=== PATIENT | male | born 1960 | race Caucasian/White ===

== ENCOUNTER → 2019-12-23 | Outpatient (CLI) | payer BC ==
--- NOTE | 2019-12-23 22:41 | CT ---
EXAMINATION TYPE: CT sinus wo con DATE OF EXAM: 12/23/2019 COMPARISON: NONE HISTORY: Chronic sinusitis and recurrent acute per order. Facial pain and congestion for patient. CT DLP: 642.5 mGycm. Automated Exposure Control for Dose Reduction was Utilized. TECHNIQUE: CT scan of the sinuses is performed without contrast, axial images are obtained, coronal r eformatted images are also reviewed. FINDINGS: Mild mucosal thickening involving inferior aspect bilateral maxillary sinuses. Large mucous retention cyst or polyp in the inferior left maxillary sinus. Mild mucosal thickening involving the larger caliber left sphenoid sinus. [id number] mucosal thickening involving ethmoid sinuses katherine aterally greater on the left side. No suspicious opacification or air-fluid levels. The surgically tr eated ostiomeatal complex is patent bilaterally on the coronal images. Nasal septum is deviated to ri ght of midline. Visualized portion of mastoid air cells show no abnormal opacification. The globes are intact bilate rally. IMPRESSION: Chronic paranasal sinus disease as detailed above. No acute sinusitis is noted.
== END | disposition home or self-care (01) ==
LOC: RADCTMAIN 16:27
PROVIDERS: ATTEND Nurse Practitioner Family
DX: J32.9 Chronic sinusitis, unspecified (principal)
CPT/HCPCS: 70486

== ENCOUNTER → 2020-01-27 | Outpatient (CLI) | payer BC | END | disposition home or self-care (01) | LOC: LABWHC1 15:57 | PROVIDERS: ATTEND Otolaryngology | DX: J30.89 Other allergic rhinitis (principal) | CPT/HCPCS: 36415 ==

== ENCOUNTER 2023-02-28 08:04 | Day surgery (SDC) | payer BC ==
[2023-02-23 08:47] VITALS: BMI 29.0
[~2023-02-28 08:04] MED LIST: LACTATED RINGERS 1,000 ML IV SCH; LIDOCAINE 1% (10MG/ML) FOR IV START INTRADERMA PRN
[2023-02-28 08:27] VITALS: RESP 16; TEMP 97.1
[2023-02-28] MEDS ORDERED: PROPOFOL 10 MG/ML 20 ML VIAL IV ONE (08:47)
--- NOTE | 2023-02-28 08:50 | P.GSHP ---
History of Present Illness H&P Date: 02/28/23 Chief Complaint: Colon cancer screening 63-year-old male here for colonoscopy. Last colonoscopy 10 years ago. That study was normal. No bowel complaints. No family history of colon cancer. Past Medical History Past Medical History: GERD/Reflux, Hyperlipidemia Additional Past Medical History / Comment(s): eczema. chronic sinusitis due to allergies History of Any Multi-Drug Resistant Organisms: None Reported Past Surgical History: Hernia Repair, Tonsillectomy Additional Past Surgical History / Comment(s): left wrist repair. left knee meniscus repair. sinus surgery Past Anesthesia/Blood Transfusion Reactions: No Reported Reaction Past Psychological History: No Psychological Hx Reported Smoking Status: Never smoker Past Alcohol Use History: Daily Additional Past Alcohol Use History / Comment(s): reports daily beer or whiskey Past Drug Use History: None Reported Additional Drug Use History / Comment(s): chewed tabacco none since 2007, rare cigar past use - Past Family History Mother Family Medical History: Cancer Father History Unknown: Yes Family Medical History: Cancer Additional Family Medical History / Comment(s): lung Medications and Allergies Home Medications Medication Instructions Recorded Confirmed Type Aspirin [Adult Low Dose Aspirin EC] 81 mg PO DAILY 02/23/23 02/23/23 History Cetirizine HCl [Zyrtec] 10 mg PO DAILY 02/23/23 02/23/23 History Fluocinonide 0.05% [Lidex 0.05% 1 applic TOPICAL DAILY PRN 02/23/23 02/28/23 History cream] Fluticasone Nasal Zimmerman [Flonase 1 spray EA NOSTRIL DAILY 02/23/23 02/28/23 History Nasal Zimmerman] Garlic 1,000 mg PO DAILY 02/23/23 02/23/23 History L.acidoph,Paracasei, B.lactis 1 each PO DIRECTED 02/23/23 02/23/23 History [Probiotic] Omeprazole 20 mg PO DIRECTED 02/23/23 02/23/23 History Rosuvastatin Calcium 20 mg PO DAILY 02/23/23 02/23/23 History Allergies Allergy/AdvReac Type Severity Reaction Status Date / Time enviornmental Allergy Unknown Uncoded 02/28/23 08:16 Surgical - Exam Vital Signs Temp Pulse Resp BP Pulse Ox 97.1 F L 82 16 146/94 97 02/28/23 08:26 02/28/23 08:26 02/28/23 08:26 02/28/23 08:26 02/28/23 08:26 Physical exam: General: Well-developed, well-nourished HEENT: Normocephalic, sclerae nonicteric Abdomen: Nontender, nondistended Extremities: No edema Neuro: Alert and oriented Assessment and Plan (1) Colon cancer screening Narrative/Plan: Will proceed with colonoscopy at this time. Current Visit: Yes Status: Acute Code(s): Z12.11 - ENCOUNTER FOR SCREENING FOR MALIGNANT NEOPLASM OF COLON SNOMED Code(s): 931049634
--- NOTE | 2023-02-28 09:05 | P.PCN ---
Date of Procedure: 02/28/23 Procedure(s) Performed: PREOPERATIVE DIAGNOSIS: Colon cancer screening POSTOPERATIVE DIAGNOSIS: Small descending colon polyp PROCEDURE: Colonoscopy with snare polypectomy ANESTHESIA: MAC SURGEON: Jose J Bell M.D. SPECIMENS: Descending colon polyp ENDOSCOPIC PROCEDURE: The patient was placed on the endoscopy table in the left decubitus position. The Olympus colonoscope was inserted into the anus and passed under direct visualization to the base of the cecum. The appendiceal orifice was visualized. From that point the scope was slowly withdrawn inspecting all surfaces carefully. There were no neoplastic inflammatory or polypoid lesions throughout the cecum, ascending, and transverse colon. In the descending colon a small polyp was seen and removed using the snare with cautery technique. The remainder of the descending sigmoid and rectum was normal. There was no visible diverticulosis. Digital rectal examination was normal. The patient was taken to the recovery room in stable condition per anesthesia guidelines. RECOMMENDATIONS: Await biopsy results. Will contact patient with timing for next colonoscopy.
[2023-02-28 09:52] VITALS: BP 133/82; PULSE 81
== END 2023-02-28 10:06 | disposition home or self-care (01) ==
LOC: ORWHC2ENDO 08:04
PROVIDERS: ATTEND Surgery
DX: Z12.11 Encounter for screening for malignant neoplasm of colon (principal); K63.5 Polyp of colon; K21.9 Gastro-esophageal reflux disease without esophagitis; E78.5 Hyperlipidemia, unspecified; F10.90 Alcohol use, unspecified, uncomplicated; J32.9 Chronic sinusitis, unspecified; Z90.89 Acquired absence of other organs; Z98.890 Other specified postprocedural states; Z87.891 Personal history of nicotine dependence; Z80.8 Family history of malignant neoplasm of other organs or systems; Z79.82 Long term (current) use of aspirin; Z79.899 Other long term (current) drug therapy; Z91.09 Other allergy status, other than to drugs and biological substances
CPT/HCPCS: 88305; 45385; J2704